=== PATIENT | male | born 1985 | race Caucasian/White ===

== ENCOUNTER 2016-09-21 20:14 | Emergency (ER) | payer MEDICAID ==
[~2016-09-21 20:14] MED LIST: IBUP200C5
== END 2016-09-21 20:35 | disposition left against medical advice (07) ==
LOC: ER 20:17
DX: Z53.21 Procedure and treatment not carried out due to patient leaving prior to being seen by health care provider (principal)

== ENCOUNTER 2017-01-30 17:08 | Emergency (ER) | payer MEDICAID, OTHER ==
[~2017-01-30] VITALS: Ht 188 cm; Wt 92.1 kg
--- NOTE | 2017-01-30 17:08 | NUR ---
SOB X 30 MINUTES, ADMIT TO USING [facility] YESTERDAY. NAD NOTED. PT AAO X4, AMB WITH STEADY GAIT. VSS. PLACED IN GOWN AND MONITOR. PENDING MD CRUZ.
[2017-01-30 17:28] LABS: BASOPHILS % (AUTO) 0.5 % (0.0-2.0); EOSINOPHILS # (AUTO) 0.2 /CMM (0.0-0.7); EOSINOPHILS % (AUTO) 2.3 % (0.0-6.0); HEMATOCRIT 49 % (39-51); HEMOGLOBIN 15.4 g/dL (13.5-17.5); LYMPHOCYTES % (AUTO) 26.4 % (20.0-44.0); MEAN CORPUSCULAR HEMOGLOBIN 27 PG (26.0-33.0); MEAN CORPUSCULAR HGB CONC 32 g/dl (31.0-36.0); MEAN CORPUSCULAR VOLUME 84 fL (80-96); MONOCYTES # (AUTO) 0.9 /CMM (0.1-1.30); MONOCYTES % (AUTO) 11.5 % (2.0-12.0); NEUTROPHILS # (AUTO) 4.3 /CMM (1.8-8.9); NEUTROPHILS % (AUTO) 59.3 % (43.0-81.0); PLATELET COUNT (AUTO) 199 /CMM (150-450); RED BLOOD CELL COUNT(AUTO) 5.79 MIL/uL (4.5-6.0); WHITE BLOOD COUNT (AUTO) 7.4 K/uL (4.3-11.0)
[2017-01-30 17:39] LABS: CALCIUM, SERUM 9.4 mg/dL (8.5-10.1); CARBON DIOXIDE 32 mmol/L (21-32); CHLORIDE 102 mmol/L (98-107); CREATININE 1.2 mg/dL (0.6-1.3); GLUCOSE 69 mg/dL (74-106); POTASSIUM 4.5 mmol/L (3.5-5.1); SODIUM SERUM 139 mmol/L (136-145); UREA NITROGEN, BLOOD 18 mg/dL (7-18)
[2017-01-30 17:47] LABS: TROPONIN I < 0.017 ng/mL (0.00-0.056)
[2017-01-30 17:49] LABS: INR 1.23 (0.87-1.13); PROTHROMBIN TIME 12.9 SECS (9.5-12.7)
[2017-01-30 17:55] LABS: B-TYPE NATRIURETIC PEPTIDE < 5 PG/ML (0-125)
[2017-01-30 18:28] VITALS: BP 140/68
== END 2017-01-30 18:30 | disposition home or self-care (01) ==
LOC: ER 17:10
DX: R06.02 Shortness of breath (principal); J44.9 Chronic obstructive pulmonary disease, unspecified; G89.29 Other chronic pain; F15.10 Other stimulant abuse, uncomplicated; F17.210 Nicotine dependence, cigarettes, uncomplicated; Z88.0 Allergy status to penicillin
CPT/HCPCS: 36415; 71010-TC; 80048-TC; 83880; 84484-TC; 85025-TC; 85730-TC; A4606; Z7610

== ENCOUNTER 2017-06-19 04:21 | Emergency (ER) | payer OTHER ==
[~2017-06-19] VITALS: Ht 177.8 cm; Wt 86.2 kg
[2017-06-19 04:21] VITALS: BP 142/71
== END 2017-06-19 04:45 | disposition home or self-care (01) ==
LOC: ER 04:25
DX: K08.89 Other specified disorders of teeth and supporting structures (principal); G89.29 Other chronic pain; J44.9 Chronic obstructive pulmonary disease, unspecified; F17.200 Nicotine dependence, unspecified, uncomplicated; M54.9 Dorsalgia, unspecified; Z88.0 Allergy status to penicillin; Z98.890 Other specified postprocedural states
CPT/HCPCS: 99283; A4606; Z7610

== ENCOUNTER 2018-03-29 02:12 | Emergency (ER) | payer OTHER ==
[~2018-03-29] VITALS: Ht 182.9 cm; Wt 91.2 kg
[2018-03-29 02:20] VITALS: BP 151/91
[2018-03-29] MEDS ORDERED: IBUPROFEN 400 MG TABLET ONE (02:57)
[2018-03-29] MEDS ORDERED: IBUPROFEN 400 MG TABLET PO ONE (03:00)
== END 2018-03-29 03:02 | disposition home or self-care (01) ==
LOC: ER 02:13
DX: K08.89 Other specified disorders of teeth and supporting structures (principal); G89.29 Other chronic pain; M54.9 Dorsalgia, unspecified; J44.9 Chronic obstructive pulmonary disease, unspecified; I10 Essential (primary) hypertension; F15.10 Other stimulant abuse, uncomplicated; F17.200 Nicotine dependence, unspecified, uncomplicated; Z88.0 Allergy status to penicillin; Z98.890 Other specified postprocedural states
CPT/HCPCS: 99282; 99406; A4606; Z7610

== ENCOUNTER 2018-05-12 23:49 | Emergency (ER) | payer OTHER ==
[~2018-05-12] VITALS: Ht 188 cm; Wt 92.5 kg
[2018-05-13 00:02] VITALS: BP 152/101
--- NOTE | 2018-05-13 01:14 | NUR ---
PT WAS IN THE ROOM AWAITING MD CRUZ. CAME TO THE NURSES' STATION AND STATED "I DONT WANNA WAIT ANY LONGER; JUST GONNA GO". NOTIFIED.
== END 2018-05-13 01:17 | disposition left against medical advice (07) ==
LOC: ER 23:49
DX: Z53.21 Procedure and treatment not carried out due to patient leaving prior to being seen by health care provider (principal); J44.9 Chronic obstructive pulmonary disease, unspecified; G89.29 Other chronic pain; F17.200 Nicotine dependence, unspecified, uncomplicated; Z98.890 Other specified postprocedural states; Z88.0 Allergy status to penicillin
CPT/HCPCS: A4606; Z7610

== ENCOUNTER 2019-05-19 01:24 | Emergency (ER) | payer OTHER ==
[~2019-05-19] VITALS: Ht 188 cm; Wt 93.0 kg
[2019-05-19 01:35] VITALS: BP 141/91
[2019-05-19] MEDS ORDERED: IBUPROFEN 600 MG TABLET PO ONE (01:47)
[2019-05-19] MEDS ORDERED: IBUPROFEN 400 MG TABLET PO ONE (02:00)
== END 2019-05-19 01:52 | disposition home or self-care (01) ==
LOC: ER 01:28
DX: K08.89 Other specified disorders of teeth and supporting structures (principal); R51 Headache; J44.9 Chronic obstructive pulmonary disease, unspecified; G89.29 Other chronic pain; F17.200 Nicotine dependence, unspecified, uncomplicated; Z98.890 Other specified postprocedural states; Z88.0 Allergy status to penicillin

== ENCOUNTER 2019-07-27 01:43 | Emergency (ER) | payer OTHER ==
[~2019-07-27] VITALS: Ht 188 cm; Wt 96.6 kg
--- NOTE | 2019-07-27 02:16 | NUR ---
PT AAOX4. AMBULATORY. PT C/O HEADACHE X2 DAYS. PT STATED HE PLACED A TISSUE IN HIS EAR EALIER AND SAW BLOOD ON THE TIP OF THE TISSUE. -N/V -DIZZY. UPON ASSESSMENT PT STATES HE DOES NOT HAVE A HEADACHE ANYMORE. NO NEURO DEFICIT, PERRLA. RR EVEN AND UNLABORED. PLACED ON MONITOR AND PULSE OX. NO ACUTE DISTRESS NOTED.
[2019-07-27 02:18] VITALS: BP 159/82
--- NOTE | 2019-07-27 02:29 | NUR ---
ASSUMED CARE OF PT FOR EUGENIO.
== END 2019-07-27 02:57 | disposition home or self-care (01) ==
LOC: ER 01:46
DX: G44.209 Tension-type headache, unspecified, not intractable (principal); K02.9 Dental caries, unspecified; F15.10 Other stimulant abuse, uncomplicated; I10 Essential (primary) hypertension; E78.5 Hyperlipidemia, unspecified; J44.9 Chronic obstructive pulmonary disease, unspecified; F19.10 Other psychoactive substance abuse, uncomplicated; F17.200 Nicotine dependence, unspecified, uncomplicated; Z71.6 Tobacco abuse counseling; Z98.890 Other specified postprocedural states; Z88.0 Allergy status to penicillin; Z79.899 Other long term (current) drug therapy

== ENCOUNTER 2020-06-23 03:04 | Emergency (ER) | payer SELFPAY ==
[~2020-06-23] VITALS: Ht 188 cm; Wt 90.7 kg
[2020-06-23 03:08] VITALS: BP 153/98
[2020-06-23] MEDS ORDERED: IBUPROFEN 400 MG TABLET PO ONE (03:30)
== END 2020-06-23 03:22 | disposition home or self-care (01) ==
LOC: ER 03:04
DX: S29.011A Strain of muscle and tendon of front wall of thorax, initial encounter (principal); I10 Essential (primary) hypertension; E78.5 Hyperlipidemia, unspecified; J44.9 Chronic obstructive pulmonary disease, unspecified; Z98.890 Other specified postprocedural states; Z88.0 Allergy status to penicillin; X58.XXXA Exposure to other specified factors, initial encounter; Y93.89 Activity, other specified; Y92.89 Other specified places as the place of occurrence of the external cause; Y99.8 Other external cause status

== ENCOUNTER 2020-07-13 20:38 | Emergency (ER) | payer SELFPAY ==
[~2020-07-13] VITALS: Ht 188 cm; Wt 94.3 kg
[2020-07-13 20:39] VITALS: BP 150/87
[2020-07-13] MEDS ORDERED: MAG HYDROX/AL HYDROX/SIMETH 30 ML UDC ONE (21:14)
[2020-07-13] MEDS ORDERED: LIDOCAINE VISCOUS 2% UD 15 ML UDC ONE (21:14)
[2020-07-13] MEDS ORDERED: LIDOCAINE VISCOUS 2% UD 15 ML UDC MM ONE (21:30)
[2020-07-13] MEDS ORDERED: MAG HYDROX/AL HYDROX/SIMETH 30 ML UDC PO ONE (21:30)
--- NOTE | 2020-07-13 21:43 | NUR ---
Patient discharged to home in stable condition. Written and verbal after care instructions given. Patient verbalizes understanding of instruction.Pt. ambulatory with a steady gait. -SOB
== END 2020-07-13 21:44 | disposition home or self-care (01) ==
LOC: ER 20:44
DX: R09.89 Other specified symptoms and signs involving the circulatory and respiratory systems (principal); I10 Essential (primary) hypertension; J44.9 Chronic obstructive pulmonary disease, unspecified; F17.200 Nicotine dependence, unspecified, uncomplicated; Z98.890 Other specified postprocedural states; Z88.0 Allergy status to penicillin
CPT/HCPCS: 71045-TC

== ENCOUNTER 2021-01-05 05:32 | Emergency (ER) | payer SELFPAY ==
[~2021-01-05] VITALS: Ht 188 cm; Wt 93.0 kg
--- NOTE | 2021-01-05 05:40 | NUR ---
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 PT NOTED CONGESTED. PT SPEAKING IN FULL SENTENCES. PT AOX44 RR EVEN AND UNLABORED. NO SOB NOTED. NO NVD AT THIS TIME. NO ACUTE DISTRESS NOTED. PT CONNECTED TO MONITOR.
[2021-01-05] MEDS ORDERED: LIDOCAINE VISCOUS 2% UD 15 ML UDC ONE (06:30)
[2021-01-05] MEDS ORDERED: MAG HYDROX/AL HYDROX/SIMETH 30 ML UDC ONE (06:30)
[2021-01-05] MEDS ORDERED: MAG HYDROX/AL HYDROX/SIMETH 30 ML UDC PO ONE (06:30)
[2021-01-05] MEDS ORDERED: LIDOCAINE VISCOUS 2% UD 15 ML UDC MM ONE (06:30)
--- NOTE | 2021-01-05 06:34 | NUR ---
PT RETURN FROM CT.
[2021-01-05 06:41] LABS: BASOPHILS % (AUTO) 0.5 % (0.0-2.0); EOSINOPHILS % (AUTO) 4.8 % (0.0-6.0); HEMATOCRIT 43 % (39-51); HEMOGLOBIN 14.8 g/dL (13.5-17.5); LYMPHOCYTES # (AUTO) 3.1 /CMM (0.8-4.8); LYMPHOCYTES % (AUTO) 34.7 % (20.0-44.0); MEAN CORPUSCULAR HGB CONC 34 g/dl (31.0-36.0); MEAN CORPUSCULAR VOLUME 88 fL (80-96); MONOCYTES # (AUTO) 0.8 /CMM (0.1-1.30); MONOCYTES % (AUTO) 9.5 % (2.0-12.0); NEUTROPHILS # (AUTO) 4.5 /CMM (1.8-8.9); NEUTROPHILS % (AUTO) 50.5 % (43.0-81.0); PLATELET COUNT (AUTO) 179 /CMM (150-450); WHITE BLOOD COUNT (AUTO) 8.9 K/uL (4.3-11.0)
[2021-01-05 07:09] LABS: BILIRUBIN,DIRECT 0.1 mg/dL (0.0-0.2); BILIRUBIN,TOTAL 0.6 mg/dL (0.2-1.0); CALCIUM, SERUM 8.9 mg/dL (8.5-10.1); TOTAL PROTEIN, SERUM 7.9 g/dL (6.4-8.2)
[2021-01-05 07:26] LABS: POTASSIUM 3.7 mmol/L (3.5-5.1)
[2021-01-05] MEDS ORDERED: FLUT9.9S NS (07:49)
[2021-01-05 07:57] VITALS: BP 140/81
--- NOTE | 2021-01-05 07:58 | NUR ---
Patient discharged to home in stable condition. Written and verbal after care instructions given. Patient verbalizes understanding of instruction.
== END 2021-01-05 07:57 | disposition home or self-care (01) ==
LOC: ER 05:34
DX: J06.9 Acute upper respiratory infection, unspecified (principal); R07.89 Other chest pain; R06.02 Shortness of breath; R10.13 Epigastric pain; I10 Essential (primary) hypertension; J44.9 Chronic obstructive pulmonary disease, unspecified; Z98.890 Other specified postprocedural states; Z88.0 Allergy status to penicillin; F17.200 Nicotine dependence, unspecified, uncomplicated
CPT/HCPCS: 36415; 71045-TC; 80048-TC; 80076-TC; 83690-TC; 85025-TC; 85378-TC